=== PATIENT | female | born 1950 | race Caucasian/White ===

== ENCOUNTER 2017-02-28 06:56 | Emergency (ER) | payer OTHER ==
[~2017-02-28] VITALS: Ht 172.7 cm; Wt 85.3 kg
[~2017-02-28 06:56] MED LIST: ADULT LOW DOSE81 M1 PO; ALPRAZOLAM ER1 MG PO; ALPRAZOLAM1 MG PO; AMBIEN5 M1 PO; ASPIRIN E.C.81 M1 PO; ATORVASTATIN CA40 MG PO; AZITHROMYCIN250 MG; CALCIUM CITR1 TABLET PO; CALCIUM CITRAT200 MG PO; CENTRUM SILVER1 EAC3 PO; CLOBEX59 M1 TP; Calan PO; DIOVAN160 MG PO; DOXYCYCLINE HY100 MG PO; DOXYCYCLINE HYC20 MG; DOXYCYCLINE HYC20 MG PO; EFFEXOR XR150 MG PO; EFFEXOR XR75 MG PO; EFFEXOR37.5 MG PO; EFFEXOR75 MG PO; FLUTICASONE; HALDOL1 M1; HALDOL1 MG PO; HALOPERIDOL1 MG PO; HYDROCHLOROTH12.5 MG PO; HYZAAR 100-21 TABLET PO; K-DUR20 MEQ PO; LAMISIL250 MG PO; LIDODERM 5% P1 PATCH TD; LIPO-FLAVONO1 TABLET PO; LOSARTAN-HCTZ1 EAC1; LOSARTAN-HCTZ1 EAC1 PO; NAPROXEN500 MG PO; OLANZAPINE20 MG PO; Oyst-Cal D, Oscal W/ PO; PANTOPRAZOLE SO40 MG; PANTOPRAZOLE SO40 MG PO; PERCOCET 5/31 TABLET PO; PLAVIX75 MG; PLAVIX75 MG PO; POTASSIUM CHLO10 ME3 PO; POTASSIUM CHLO20 ME1; PREDNISONE20 MG PO; PREVACID30 MG PO; Prilosec PO; REQUIP1 MG PO; REQUIP3 MG PO; REQUIP5 MG PO; ROPINIROLE HCL5 MG; Requip PO; SERTRALINE HCL50 MG PO; TOPAMAX100 MG PO; TOPAMAX25 MG PO; VENLAFAXINE HC100 MG PO; VENLAFAXINE HC150 M1; VENLAFAXINE HC150 MG; VENLAFAXINE HC150 MG PO; VENLAFAXINE HCL75 M3; VENLAFAXINE HCL75 MG PO; VERAPAMIL HCL80 MG PO; VITAMIN D31000 UNIT PO; ZITHROMAX Z-PA250 MG PO; ZYPREXA10 MG PO; ZYPREXA15 MG; ZYPREXA15 MG PO; ZYPREXA20 MG PO; ZYPREXA7.5 MG PO; Zocor PO
[2017-02-28 07:21] LABS: HEMATOCRIT 35.8 % (36.0-46.0); MCH 30.4 PG (29.0-34.0); MCHC 34.4 G/DL (30.0-36.0); MCV 88.6 FL (83-99); MEAN PLAT.VOLUME 10.7 uM^3 (9.5-12.4); PLATELET COUNT 200 K/uL (156-360); RBC DIS.WIDTH-CV 12.8 % (11.8-14.6); RBC DIS.WIDTH-SD 41.6 % (39-53); RED BLOOD COUNT 4.04 M/uL (3.80-5.20)
[2017-02-28 07:49] LABS: ADD MIUA? NO; BILIRUBIN NEGATIVE; BLOOD NEGATIVE; COLOR YELLOW ((YELLOW)); GLUCOSE (STRIP) NEGATIVE; KETONES NEGATIVE; LEUKOCYTES NEGATIVE; NITRITE NEGATIVE; PROTEIN (STRIP) NEGATIVE; SPECIFIC GRAVITY 1.014 (1.000-1.030); UCUL ADDED? NO; UROBILINOGEN 0.2 MG/DL (0.2-1.0)
[2017-02-28 07:49] LABS: ANION GAP 8 MEQ/L (2-14); CHLORIDE 107 MEQ/L (99-109); GFR ESTIMATE (CALCULATED) > 59 mL/min/; GLUCOSE 102 mg/dL (70-99); POTASSIUM 3.1 MEQ/L (3.7-5.4); SAMPLE HEMOLYSIS CHECK 0; SAMPLE ICTERIC CHECK 0; SAMPLE LIPEMIA CHECK 0; SODIUM 140 MEQ/L (136-147); UREA NITROGEN (BUN) 20 mg/dL (9-23)
[2017-02-28 09:54] VITALS: BP 139/74
== END 2017-02-28 10:34 | disposition home or self-care (01) ==
LOC: EME 06:56
PROVIDERS: Emergency Medicine
DX: R39.198 Other difficulties with micturition (principal); R53.1 Weakness; E87.6 Hypokalemia; G20 Parkinson's disease; I10 Essential (primary) hypertension; Z90.710 Acquired absence of both cervix and uterus; Z79.02 Long term (current) use of antithrombotics/antiplatelets; Z87.891 Personal history of nicotine dependence
CPT/HCPCS: 80048; 81003; 85027; 99281; 99282; J7030

== ENCOUNTER → 2018-02-09 | Outpatient (CLI) | payer MEDICARE ==
[~2018-02-09] MED LIST changes: +ONE DAILY WOME1 EAC2 PO; +VENLAFAXINE HCL75 M1 PO
== END | disposition home or self-care (01) ==
LOC: CDC 09:30
DX: Z01.810 Encounter for preprocedural cardiovascular examination (principal); I45.4 Nonspecific intraventricular block
CPT/HCPCS: 93000

== ENCOUNTER 2018-03-08 09:50 | Day surgery (SDC) | payer OTHER ==
[~2018-03-08] VITALS: Ht 167.6 cm; Wt 68.9 kg
[2018-03-08 10:12] VITALS: BP 140/64
[2018-03-08 13:25] VITALS: BP 160/93
[2018-03-08 14:12] VITALS: BP 145/67
== END 2018-03-08 14:15 | disposition home or self-care (01) ==
LOC: SDC 09:50
PROC: 0DJD8ZZ Inspection of Lower Intestinal Tract, Via Natural or Artificial Opening Endoscopic (ICD-10-PCS; principal; 2018-03-08)
DX: K62.6 Ulcer of anus and rectum (principal); K64.4 Residual hemorrhoidal skin tags; Z87.891 Personal history of nicotine dependence; Z88.5 Allergy status to narcotic agent; Z88.0 Allergy status to penicillin; Z88.8 Allergy status to other drugs, medicaments and biological substances; Z88.1 Allergy status to other antibiotic agents; Z91.040 Latex allergy status; Z79.02 Long term (current) use of antithrombotics/antiplatelets
CPT/HCPCS: J0131; J1170; J2250; J2310; J2405; J3010; Q0175